=== PATIENT | female | born 1975 | race Caucasian/White ===

== ENCOUNTER 2016-11-28 13:46 | Emergency (ER) | payer BC, OTHER ==
[2016-11-28 13:55] VITALS: BP 128/76; PULSE 97; RESP 16; TEMP 98.6; O2SAT 96
--- NOTE | 2016-11-28 14:20 | DX ---
Right Foot - 3 views Indication: Swelling and pain. No known trauma. Technique: AP, oblique, and lateral views. Comparison: None Findings: The bones are anatomically aligned. No periostitis or joint space abnormality. Small planta r spur is present. Mild forefoot soft tissue swelling. No subcutaneous gas or foreign body. Impression: Forefoot soft tissue swelling. No evidence of osteomyelitis or arthropathy.
[2016-11-28] MEDS ORDERED: CEPHALEXIN 500 MG CAP PO ONE (14:30)
--- NOTE | 2016-11-28 14:32 | UCPHY ---
H & P Time Seen by Provider: 11/28/16 14:01 Patient Type: New HPI/ROS: HPI Right foot redness and swelling. 41-year-old female by private vehicle. Patient reports that she had itchy right foot which she thinks she scratched with her hands significantly on Sunday evening. She reports that on Sunday evening she noticed that the anterior surface of the right mid to lateral foot was becoming slightly swollen and erythematous. There is no history of trauma. She also could is concerned about a possible insect bite to the right foot but she denies any recollection of this. ROS: Constitutional: No fever, no chills. No weakness. Musculoskeletal: As above. Skin: As above. Neurological: No focal weakness or altered sensation. Past medical history: No history of diabetes. No other significant past medical history. Social history: Here by herself. Physical Exam: General Appearance: Alert, no distress. This patient is responding to questions appropriately and in full sentences. This patient appears well- hydrated and well-nourished. Eyes: Pupils equal and round no pallor or injection. No lid edema, erythema or injection. Right foot examination: She has a mild and diffuse swelling mid dorsal aspect to lateral mid forefoot. There is a faint erythema and mild warmth associated with this. There are no open lesions. No fluctuance. No ecchymosis or bony tenderness on palpation. The right foot is neurovascularly intact. Neurological: Motor sensory function is grossly intact. Cranial nerves are normal. Gait is normal. Skin: Warm and dry, as above. Extremities are symmetrical except noted. All joints range without pain or impingement. Database: EKG: Imaging: Left foot x-ray series: Negative for fracture, subluxation, dislocation. No evidence of osteomyelitis. Interpreted by me. Procedures: Emergency department course: Results of x-rays discussed with the patient. Diagnosis of probable early cellulitis discussed. Medication allergies reviewed. She was started on Keflex in the urgent care for treatment of probable early cellulitis. She has been instructed to keep the foot elevated as much as possible. She will be prescribed Keflex at 500 mg four times daily over the next 7 days. She is data return to the emergency department immediately for worsening erythema, swelling or fever. Otherwise plan is to have her follow up in urgent care in 2 days for recheck. She is in agreement with this plan. All of her questions were answered. She was discharged in good condition. Differential Diagnosis: The differential diagnosis on this patient includes but is not limited to right foot cellulitis, right foot localized inflammation. Right foot fracture, subluxation, dislocation, osteomyelitis unlikely. This represents a partial list of diagnoses considered. These considerations are based on history, physical exam, past history, reassessment and diagnostic testing. Smoking Status: Never smoked Constitutional: Initial Vital Signs Temperature (C) 37 C 11/28/16 13:53 Heart Rate 97 11/28/16 13:53 Respiratory Rate 16 11/28/16 13:53 Blood Pressure 128/76 H 11/28/16 13:53 O2 Sat (%) 96 11/28/16 13:53 O2 Delivery Mode Room Air Allergies/Adverse Reactions: Penicillins Allergy (Verified 11/28/16 13:53) Home Medications: Medication Instructions Recorded Cephalexin [Keflex (*)] 500 mg PO Q6 7 Days 11/28/16 MDM/Departure - Depart Disposition: Home, Routine, Self-Care Clinical Impression: Cellulitis of right foot Condition: Good Instructions: Cellulitis (ED) Additional Instructions: Read and follow provided instructions. Keep your right foot elevated as much as possible for the next 24-48 hours. Follow-up with your primary care physician in 2 days or return to Urgent Care in 2 days for recheck. Take medication as prescribed through entire course of treatment. Return to the emergency department immediately for worsening swelling, redness or other discoloration, fever or other serious concerns. Prescriptions: Cephalexin [Keflex (*)] 500 mg PO Q6 7 Days Referrals: NONE *PRIMARY CARE P,. [Primary Care Provider] - As per Instructions - PQRS PQRS Measurement: Not applicable.
== END 2016-11-28 14:48 | disposition home or self-care (01) ==
LOC: CED 13:46
DX: L03.115 Cellulitis of right lower limb (principal)
CPT/HCPCS: 73630-PO; 99203-PO; G0463-PO